=== PATIENT | female | born 2000 | race Caucasian/White ===

== ENCOUNTER 2023-11-04 14:37 | Emergency (ER) | payer OTHER ==
[~2023-11-04] VITALS: Ht 157.5 cm; Wt 72.6 kg
[2023-11-04 15:21] VITALS: BP 118/70; PULSE 97; RESP 16; TEMP 98.4; O2SAT 100
[2023-11-04 16:44] LABS: APPEARANCE,URINE CLOUDY (CLEAR); BILIRUBIN,URINE 1+ (NEGATIVE); BLOOD, URINE 3+ (NEGATIVE); COLOR,URINE BROWN (YELLOW); LEUKOCYTE ESTERASE ,URINE 2+ (NEGATIVE); NITRITE, URINE NEGATIVE (NEGATIVE); PH,URINE 7.5 (5.0-9.0); PROTEIN,URINE 2+ (NEGATIVE); UGLUCOSE NEGATIVE (NEGATIVE)
[2023-11-04 16:56] LABS: BACTERIA,URINE 2+ /HPF (None Seen); ICTOTEST NEGATIVE (NEGATIVE); MUCUS,URINE 1+ /LPF (None Seen); RBC,URINE TOO NUMEROUS TO COUN /HPF (0-5); SQUAMOUS EPITHELIAL CELL,UR 4-10 (MOD) /LPF (0-3 (FEW)); TRICHOMONAS,URINE None Seen /HPF (None Seen); WBC,URINE 16-25 (MOD) /HPF (0-5); YEAST,URINE None Seen /HPF (None Seen)
[2023-11-04] MEDS ORDERED: CEPH500C16 PO (17:17)
[2023-11-04] MEDS ORDERED: VIB100 PO (17:17)
[2023-11-04] MEDS ORDERED: cefTRIAXone 500 MG VIAL ONE (17:26)
[2023-11-04] MEDS ORDERED: LIDOCAINE MPF 1% 5 ML ONE (17:26)
[2023-11-04] MEDS: cefTRIAXone 500 MG in LIDOCAINE MPF 1% 1 ML IM ONE (17:40)
== END 2023-11-04 17:41 | disposition home or self-care (01) ==
LOC: MED 14:37
DX: N39.0 Urinary tract infection, site not specified (principal); J45.909 Unspecified asthma, uncomplicated; Z79.899 Other long term (current) drug therapy
CPT/HCPCS: 81001; 81025; 87086; 87491; 96372; 99283; J0696; J2001; 87186

== ENCOUNTER 2024-03-13 14:00 | Emergency (ER) | payer OTHER ==
[~2024-03-13] VITALS: Ht 157.5 cm; Wt 70.5 kg
[~2024-03-13 14:00] MED LIST: CEPH500C16 PO; VIB100 PO
[2024-03-13 14:21] VITALS: BP 111/88; PULSE 92; RESP 16; TEMP 98.8; O2SAT 100
[2024-03-13 16:29] LABS: APPEARANCE,URINE CLEAR (CLEAR); BILIRUBIN,URINE NEGATIVE (NEGATIVE); BLOOD, URINE TRACE-I (NEGATIVE); COLOR,URINE YELLOW (YELLOW); LEUKOCYTE ESTERASE ,URINE TRACE (NEGATIVE); NITRITE, URINE NEGATIVE (NEGATIVE); PROTEIN,URINE NEGATIVE (NEGATIVE); UGLUCOSE NEGATIVE (NEGATIVE); UROBILINOGEN,URINE 0.2 EU/dL (0.2 - 1)
[2024-03-13 16:39] LABS: BACTERIA,URINE 10-30 (MOD) /HPF (None Seen); SQUAMOUS EPITHELIAL CELL,UR 4-10 (MOD) /LPF (0-3 (FEW))
[2024-03-13] MEDS ORDERED: PYR100 PO (17:25)
[2024-03-13] MEDS ORDERED: ALBU0.0912 IH (17:25)
[2024-03-13] MEDS ORDERED: CEPH-588 PO (17:25)
[2024-03-13] MEDS ORDERED: IBUP-2213 PO (17:25)
[2024-03-13 17:30] VITALS: BP 141/71; PULSE 80; RESP 20; TEMP 98.3; O2SAT 99
== END 2024-03-13 17:30 | disposition home or self-care (01) ==
LOC: MED 14:00
DX: N39.0 Urinary tract infection, site not specified (principal); J45.909 Unspecified asthma, uncomplicated; A64 Unspecified sexually transmitted disease; R03.0 Elevated blood-pressure reading, without diagnosis of hypertension; Z79.899 Other long term (current) drug therapy
CPT/HCPCS: 81001; 81025; 87086; 87491; 99283